=== PATIENT | male | born 1950 | race Caucasian/White ===

== ENCOUNTER → 2017-07-26 | Outpatient (CLI) | payer OTHER ==
[~2017-07-26] MED LIST: ASCO10003 PO; B-CO-25 PO; BUDE1SUS8 INTNAS; BUDESUS; FINACEA GEL TOP; IBUP-1050 PO; KETO0.0216 OP; MISCTAB78 PO; MULT-513 PO; OXYC-292 PO; OXYC7.5T78 PO; POLY99.02 OPB; POLYSOL4 OP; PRLSR20 PO; PSYL48.59 PO; PSYL55.43 PO; RANI150T85 PO; SALI1SPR15 NAE; SENNTAB23 PO; SIMV40TA2 PO; XRL10 PO
[2017-07-26 09:33] LABS: BASO % 0.4 %; BASO ABS # 0.03 K/uL (0-0.2); EOS % 2.2 %; EOS ABS # 0.15 K/uL (0-0.5); HEMATOCRIT 43.2 % (42-52); HEMOGLOBIN 15.1 g/dL (14.0-18.0); IG# 0.02 K/uL (0.00-0.02); LYMPH % 28.3 %; LYMPH ABS # 1.91 K/uL (1.2-3.4); MEAN CELL VOLUME 87.3 fL (80-100); MEAN CORPUSCULAR HEMOGLOBIN 30.5 pg (25-34); MEAN PLATELET VOLUME 11.3 fL (7.4-10.4); MONO % 10.2 %; MONO ABS # 0.69 K/uL (0.11-0.59); NEUT % 58.6 %; NEUT ABS # 3.96 K/uL (1.4-6.5); PLATELET COUNT 167 K/uL (130-400); RED CELL DISTRIBUTION WIDTH CV 13.7 % (11.5-14.5); RED CELL DISTRIBUTION WIDTH SD 43.5 fL (36.4-46.3); WHITE BLOOD COUNT 6.76 K/uL (4.8-10.8)
--- NOTE | 2017-07-26 14:13 | DIAGNOSTIC IMAGING REPORT ---
BONE SCAN 3 PHASE LIMITED HISTORY: 66 years-old Male PAIN,SWELLING,S/P TKA,LT KNEE,R/O LOOSENING,WENT TO LAB 1ST acute pain and swelling of the left knee with history of prior left knee total joint arthroplasty. Concern for possible hardware loosening. Bilateral joint arthroplasties. COMPARISON: Left knee radiographs 07/31/2012 TECHNIQUE: 3 phase bone scan was obtained utilizing 26.9 mCi technetium 99 MDP. Flow images were obtained 3 hours post injection. FINDINGS: There is mildly increased flow about the left knee. Mildly increased tracer uptake is seen on the blood pool images, left greater than right. Moderately increased delayed tracer uptake is seen about the left knee within the region of the distal femur and proximal tibia diffusely surrounding the arthroplasty hardware. Uptake is most pronounced within the region of the medial tibial plateau and within the distal tibial stem. Minimally increased blood pool and delayed delayed uptake is noted about the right knee hardware which is likely within normal limits secondary to remodeling changes. IMPRESSION: 1. Three-phase positive bone scan with uptake seen on all three phases about the left knee arthroplasty. Delayed phase uptake is most pronounced along the medial tibial plateau and within the distal tibial stem. Findings may reflect hardware loosening in the appropriate clinical setting, however aseptic hardware loosening does not typically demonstrate increased blood flow. Septic arthropathy is an additional differential consideration. Correlate with clinical history and left knee radiographs. 2. Minimally increased blood pool and delayed uptake about the right knee hardware is likely physiologic secondary to remodeling changes. The above report was generated using voice recognition software. It may contain grammatical, syntax or spelling errors. Electronically signed by: Derick Armstrong M.D. 07/26/2017 2:12 PM Dictated Date/Time: 07/26/2017 1:56 PM
== END | disposition home or self-care (01) ==
LOC: C.NUCL 08:57
DX: Z47.1 Aftercare following joint replacement surgery (principal)

== ENCOUNTER 2017-08-15 08:42 | Inpatient (IN) | payer OTHER ==
[2017-08-02 09:58] VITALS: Ht 170.2 cm; Wt 107.3 kg
--- NOTE | 2017-08-02 10:38 | PAT Medication Instructions ---
Service Date Aug 02, 2017. Current Home Medication List Ascorbic Acid (Vitamin C), 1,000 MG PO QAM B-Complex W/ Folic Acid (Super B Complex Maxi), 1 TAB PO QAM Budesonide (Nasal) (Rhinocort Allergy), 2 SPRAYS INTNAS PRN Ibuprofen (Advil), 400 MG PO PRN Ketotifen Fumarate (Ophth) (Zaditor 0.025% Oph), 1 DROP OP PRN Misc Natural Products (Osteo Bi-Flex Advanced Do), 1 TAB PO QPM Multivitamins/Minerals (Mvi With Minerals), 1 TAB PO QAM Omeprazole (Prilosec), 20 MG PO QAM Polyethylene Glycol-Propylene (Systane), 1 DROPS OP BID Psyllium (Metamucil), 5 ML PO BID Saline (Saline Nasal [place] Infant), 1 SPRY MINDY QID Sennosides-Docusate Sodium (Stool Softener), 1 TAB PO QPM Simvastatin (Zocor), 40 MG PO QPM Medication Instructions For Your Scheduled Surgery -Contact your surgeon for instructions for: Ibuprofen (Advil), 400 MG PO PRN - Hold the following medications 2 weeks prior to surgery: Misc Natural Products (Osteo Bi-Flex Advanced Do), 1 TAB PO QPM - Hold the following medications the morning of surgery: Ascorbic Acid (Vitamin C), 1,000 MG PO QAM B-Complex W/ Folic Acid (Super B Complex Maxi), 1 TAB PO QAM Multivitamins/Minerals (Mvi With Minerals), 1 TAB PO QAM Psyllium (Metamucil), 5 ML PO BID - Take the following medications the morning of surgery with a sip of water: Budesonide (Nasal) (Rhinocort Allergy), 2 SPRAYS INTNAS PRN Ketotifen Fumarate (Ophth) (Zaditor 0.025% Oph), 1 DROP OP PRN (if needed) Omeprazole (Prilosec), 20 MG PO QAM Polyethylene Glycol-Propylene (Systane), 1 DROPS OP BID Saline (Saline Nasal [place] ), 1 SPRY MINDY QID - Take the following medications as scheduled the night before surgery: Simvastatin (Zocor), 40 MG PO QPM Budesonide (Nasal) (Rhinocort Allergy), 2 SPRAYS INTNAS PRN (if needed) Ketotifen Fumarate (Ophth) (Zaditor 0.025% Oph), 1 DROP OP PRN (if needed) Polyethylene Glycol-Propylene (Systane), 1 DROPS OP BID Sennosides-Docusate Sodium (Stool Softener), 1 TAB PO QPM Psyllium (Metamucil), 5 ML PO BID If you have any questions please call us at [phone] or [phone] or [phone]
[2017-08-02 12:49] LABS: PTT PATIENT 25.8 SECONDS (21.0-31.0)
[2017-08-02 13:13] LABS: HEMOGLOBIN A1C 5.3 % (4.5-5.6)
[2017-08-02 13:18] LABS: CALCIUM 9.5 mg/dl (8.5-10.1); CREATININE 0.98 mg/dl (0.60-1.40); POTASSIUM 3.8 mmol/L (3.5-5.1)
--- NOTE | 2017-08-02 13:29 | DIAGNOSTIC IMAGING REPORT ---
CHEST 2 VIEWS ROUTINE CLINICAL HISTORY: PAT preoperative evaluation COMPARISON STUDY: No previous studies for comparison. FINDINGS: The bones soft tissues and hemidiaphragms are normal. The cardiomediastinal silhouette is normal. The lungs are clear. The pulmonary vasculature is normal. IMPRESSION: Negative chest. The above report was generated using voice recognition software. It may contain grammatical, syntax or spelling errors. Electronically signed by: Cleve Garcia M.D. 08/02/2017 1:27 PM Dictated Date/Time: 08/02/2017 1:27 PM
--- NOTE | 2017-08-14 08:42 | HISTORY & PHYSICAL EXAMINATION ---
DATE OF ADMISSION: 08/15/2017 CHIEF COMPLAINT: Left knee pain status post previous left total knee arthroplasty. HISTORY OF PRESENT ILLNESS: The patient is a 66-year-old male approximately 5 years status post left total knee arthroplasty. More recently he has been having increasing pain and disability with his left knee. Repeat x-rays were concerning for possible prosthetic loosening, particularly around the tibial component. Blood work and a bone scan was ordered. It was negative for septic process, but there was concern for possible aseptic loosening of the left knee arthroplasty. He is now scheduled for an excisional arthroplasty and revision left total knee arthroplasty. PAST MEDICAL HISTORY: Sleep apnea, hypertension, hyperlipidemia, enlarged prostate, acid reflux, hiatal hernia. PAST SURGICAL HISTORY: Left knee replacement as above, right knee replacement, hiatal hernia, right trigger finger, left knee arthroscopy, right shoulder surgery, left thumb surgery, right big toe surgery, left shoulder surgery, prostate surgery. MEDICATIONS: Multivitamin daily, Rhinocort allergy nasal suspension 2 sprays each nostril daily, B complex daily, Colace 100 mg daily as needed, Zyrtec Allergy 10 mg daily, omeprazole 20 mg daily, Osteo Bi-Flex 2 tablets daily, simvastatin 40 mg at bedtime. ALLERGIES: INCLUDE CLINDAMYCIN, NASACORT, LIPITOR, CIPRO, NEXIUM, AZITHROMYCIN. SOCIAL HISTORY AND REVIEW OF SYSTEMS: Noncontributory. PHYSICAL EXAMINATION: GENERAL: Well-nourished, well-developed male who appears stated age. HEENT: Normocephalic, atraumatic, extraocular movements intact, oropharynx pink and moist. NECK: Supple without adenopathy. LUNGS: Clear to auscultation bilaterally. HEART: Regular rate and rhythm. ABDOMEN: Soft, nontender, nondistended. EXTREMITIES: The upper extremities are within normal limits. The left knee is well-aligned. He has a well-healed midline incision from his previous arthroplasty. He has range of motion from 0-120 degrees. X-RAYS: X-rays were reviewed. He has a total knee replaced on the left. It appears well aligned. On the lateral view, there is a definite lucency about the tibial component. There is no obvious lucency on the femoral component. The bone scan was reviewed and is suggestive of probable loosening process, particularly about the tibial component. ASSESSMENT: Aseptic loosening, left total knee arthroplasty. PLAN: Risks versus benefits were discussed, consent was obtained. Will proceed with excisional arthroplasty and revision left total knee as indicated. The patient's primary care physician is Dr. Mancera from [facility].
[2017-08-15] VITALS (8 sets, daily range): BP systolic 128–186; BP diastolic 70–112; PULSE 81–96; TEMP 36.4–36.9; O2SAT 91–94
[~2017-08-15] VITALS: Ht 170.2 cm; Wt 107.3 kg
[2017-08-15] MEDS: TRANEXAMIC ACID INJ 1,000 MG x 2 Bags IV SCH ×4 (06:30→10:55)
[~2017-08-15 08:42] MED LIST changes: +ACETAMINOPHEN 500 MG TAB PO SCH; +ATROPINE SULFATE 0.1 MG/ML 5ML SYR IV PRN; -BUDESUS; +BUPIVACAINE 0.25% 30 ML VIAL ONE; +BUPIVACAINE 0.5 % 5 MG/1 ML PF 10ML VIAL ONE; +CeleBREX 200 MG CAP PO SCH; +DEXAMETHASONE 4 MG TAB PO SCH; +EpHEDrine SULFATE INJ 50 MG/ML AMP IV PRN; +FAMOTIDINE 20 MG TAB PO SCH; -FINACEA GEL TOP; +GABAPENTIN 300 MG CAP PO SCH; +METOCLOPRAMIDE HCL 10 MG TAB PO SCH; +ONDANSETRON INJ 2 MG/ML 2 ML VIAL IV PRN; -OXYC-292 PO; -OXYC7.5T78 PO; -POLY99.02 OPB; -PSYL55.43 PO; -RANI150T85 PO; -XRL10 PO
[2017-08-15] MEDS ORDERED: VANCOMYCIN IV 1,750 MG in SODIUM CHLORIDE 0.9% 500ML 500 ML IV SCH (09:30)
[2017-08-15] MEDS ORDERED: CETI10TA84 PO (09:49)
--- NOTE | 2017-08-15 10:08 | History & Physical Bridge Note ---
H&P Re-Evaluation Bridge Note: I have examined the patient, reviewed the History & Physical and in the interval since the performance of the History & Physical I have noted the following changes of clinical significance: No changes noted
[2017-08-15] MEDS ORDERED: PROPOFOL IV EMULSION 10 MG/ML 20 ML VIAL IV ONE (10:39)
[2017-08-15] MEDS ORDERED: LIDOCAINE HCL 2% 2 ML VIAL (20MG/ML) ONE (10:39)
[2017-08-15] MEDS ORDERED: FENTANYL CITRATE INJ 50 MCG/1 ML 2 ML VIAL ONE (10:40)
[2017-08-15] MEDS ORDERED: MIDAZOLAM HCL 1 MG/ML 2ML VIAL ONE ×2 (10:40→12:33)
[2017-08-15] MEDS ORDERED: BACITRACIN 50000 UNIT VIAL ONE (10:44)
[2017-08-15] MEDS ORDERED: POVIDONE-IODINE OP SOLN 30 ML BTL ONE (10:44)
[2017-08-15] MEDS ORDERED: ROPIVACAINE 5MG/ML 30 ML 150 MG, BUPIVACAINE 0.5% MPF INJ 30 ML, EpINEphrine HCL INJ 0.... INFIL SCH ×8 (11:00)
[2017-08-15] MEDS ORDERED: KETAMINE HCL INJ 50 MG/ML 10 ML VIAL ONE (11:42)
--- NOTE | 2017-08-15 13:43 | [facility] Post Operative Brief Note ---
Immediate Operative Summary Operative Date Aug 15, 2017. Pre-Operative Diagnosis Aseptic Loosening, Left Total Knee Arthroplasty Post-Operative Diagnosis Same as preop Procedure(s) Performed Left Total Knee Revision Surgeon Dr. Moon Vp Ancillary Surgeon(s) Sean Gamboa PA-C Estimated Blood Loss 150 ml Findings Consistent with Post-Op Diagnosis Specimens Microbiology 1. Left Knee Joint Fluid-gram stain, culture and sensitivity, aerobic and anerobic left room at 1200 Permanent A. Explanted Hardware Frozen 1. Bone Prosthetic Interface Left Femur-WBC's per [employer] left room at 1217 Anesthesia Type MAC Spinal Regional Complication(s) none Disposition Accompanied Pt To Recover: no Disposition: Recovery Room / PACU
[2017-08-15] MEDS ORDERED: HYDROmorphone INJ 0.5 MG/0.5 ML SYR IV PRN (14:30)
[2017-08-15] MEDS ORDERED: MAGNESIUM HYDROXIDE SUSP 30 ML UDC PO PRN (14:30)
[2017-08-15] MEDS ORDERED: ONDANSETRON INJ 2 MG/ML 2 ML VIAL IV PRN (14:30)
[2017-08-15] MEDS ORDERED: ALUMINUM/MAGNESIUM/SIMETH (MAALOX MAX) 30 ML UDC PO PRN (14:30)
[2017-08-15] MEDS ORDERED: BISACODYL 10 MG SUPP PR PRN (14:30)
[2017-08-15] MEDS ORDERED: TRAMADOL HCL 50 MG TAB PO PRN (14:30)
[2017-08-15] MEDS ORDERED: VANCOMYCIN CONSULT ACTIVE PRN (14:30)
--- NOTE | 2017-08-15 15:10 | DIAGNOSTIC IMAGING REPORT ---
L KNEE 1 OR 2 VIEWS ROUTINE CLINICAL HISTORY: Postop knee arthroplasty revision COMPARISON: 07/31/2012 DISCUSSION: There are postsurgical changes of a long stem total knee arthroplasty and patellar resurfacing. The femoral and tibial components appear well seated. There are overlying surgical drains. Air within the soft tissues is felt to be postsurgical IMPRESSION: Postsurgical changes of a total left knee arthroplasty revision Electronically signed by: Ke Patterson M.D. 08/15/2017 3:09 PM Dictated Date/Time: 08/15/2017 3:08 PM
--- NOTE | 2017-08-15 15:20 | Anesthesiology Progress Note ---
Anesthesia Post Op Note Date & Time Aug 15, 2017 at 15:20 Vital Signs Pain Intensity: 0 Vital Signs Past 12 Hours Date Time Temp Pulse Resp B/P (MAP) Pulse Ox O2 Delivery O2 Flow Rate FiO2 08/15/17 15:10 80 16 152/83 96 Nasal Cannula 3 08/15/17 15:00 88 16 169/82 96 Nasal Cannula 3 08/15/17 14:50 84 16 146/87 95 Nasal Cannula 3 08/15/17 14:40 86 16 141/75 96 Nasal Cannula 3 08/15/17 14:30 85 16 141/85 96 Nasal Cannula 3 08/15/17 14:20 90 16 150/84 96 Nasal Cannula 3 08/15/17 14:14 36.1 90 16 155/87 94 Nasal Cannula 3 08/15/17 10:01 36.4 81 20 148/99 94 Room Air 186/112 Notes Mental Status: alert / awake / arousable, participated in evaluation Pt Amnestic to Procedure: Yes Nausea / Vomiting: adequately controlled Pain: adequately controlled Airway Patency, RR, SpO2: stable & adequate BP & HR: stable & adequate Hydration State: stable & adequate Neuraxial Anesthesia: was administered, sensory block is resolving Anesthetic Complications: no major complications apparent
[2017-08-15] MEDS ORDERED: NURSING VERBAL MED ORDER ONE (16:45)
[2017-08-15] MEDS: D5W AND 1/2NSS + 20MEQ KCL 1,000 ML IV SCH (16:50)
[2017-08-15] MEDS: FERROUS GLUCONATE 324 MG TAB PO SCH (17:48)
--- NOTE | 2017-08-15 18:15 | OPERATIVE REPORT ---
DATE OF OPERATION: 08/15/2017 POSTOPERATIVE DIAGNOSIS: Aseptic loosening, left total knee. PROCEDURE: Revision left total knee. SURGEON: Gaurang Moon MD. BASEBALL SCOUT: AGAPITO Landa. Mr. Gamboa was essential through all portions of the case including positioning, prepping, draping, surgical lead, wound closure and dressing application. ANESTHESIA: Spinal. COMPLICATIONS: None. DESCRIPTION OF PROCEDURE: Following the induction of adequate general anesthesia, the patient's left leg was prepped and draped in usual sterile manner. The limb was exsanguinated with an Esmarch bandage and tourniquet inflated to 350 mmHg. Previously made incision was reopened. Subcutaneous tissue was sharply dissected. Electrocautery was used for hemostasis. Median parapatellar incision was made and a fluid sample was sent for culture and sensitivity and Gram stain. The knee was found to be severely involved with a hypertrophic synovitis. This grayish tissue was removed from normal tissue using sharp dissection. Care was taken to remove all of this tissue. Attention was turned first to the tibial component where the tibial polyethylene was disimpacted. That was found to be undamaged. Next, the patella was inspected and was not felt to be loose or worn. The femur was undermined using a thin flexible osteotome and was easily disimpacted with no loss of bone. Tissue samples sent to the lab to look for inflammatory cells. This sample, one of this being fibrinous debris. Next, attention was turned to the tibia which was found to be grossly loose. Using the Franki extractor, the tibial component was removed. A drill was used to penetrate the cement plug and sequential reamings were carried up to a size 13 stem tibia. This was an offset 4 mm and a straight posterior offset was chosen. Next, the clean-up cut was made using the oscillating saw and all bony debris as well as posterior capsular scar tissue was removed. The tibia was further prepared using the drill, bone tamp and mallet and the tibial trial was assembled and impacted into position and fit very nicely. Next, attention was turned to the femur where a size 4 femoral component was chosen as the size to be used. A 10 mm chamfer cuts were required posteriorly and reamings taken up to a size 17 without an offset was chosen in for the femur. The trial femur was placed and a trial reduction was carried out with multiple poly inserts. The size 19 posterior stabilized poly was chosen the size to be used. The patella tracked nicely. There was good balance in flexion and extension and the trials were removed. The final components were obtained and assembled. The joint mix was injected throughout the knee. Knee was thoroughly irrigated with pulsatile irrigation while cement was mixed. The bone ends were all dried and first the tibial component was cemented into position without the polyethylene in place. Following this, the stemmed femoral component was cemented into place and all excess cement was removed. The knee was held in extension with the trial in position until cement hardened. Once the cement hardened, additional irrigation with pulsatile irrigant was carried out and the final poly was positioned and impacted into position. Once again, the patella tracked nicely. Wound was irrigated. Betadine soak was utilized. Hemovac drain was placed and the extensor mechanism was closed using #1 FiberWire, subcutaneous tissue was closed using 0 Dexon, and skin was closed with ZipLine. Sterile dressing of Silverlon, sterile Webril and a double length Josh was applied. The patient tolerated the procedure well. I attest to the content of the Intraoperative Record and any orders documented therein. Any exception s are noted below.
[2017-08-15] MEDS: OXYCODONE HCL IR 5 MG TAB (IMMEDIATE RELEASE) PO PRN (19:05)
[2017-08-15] MEDS ORDERED: ASPIRIN 81 MG ECTAB PO SCH (21:00)
[2017-08-15] MEDS: SENNA 8.6 MG TAB PO SCH (21:01)
[2017-08-15] MEDS: DOCUSATE SODIUM 100 MG CAP PO SCH (21:01)
[2017-08-15] MEDS: CeleBREX 200 MG CAP PO SCH (21:01)
[2017-08-15] MEDS: SIMVASTATIN 40 MG TAB PO SCH (21:01)
[2017-08-15] MEDS: ACETAMINOPHEN 500 MG TAB PO SCH (21:01)
[2017-08-15] MEDS ORDERED: VANCOMYCIN IV 1,500 MG in SODIUM CHLORIDE 0.9% 500ML 500 ML IV SCH (22:00)
[2017-08-16] MEDS: OXYCODONE HCL IR 5 MG TAB (IMMEDIATE RELEASE) PO PRN ×4 (02:58→21:34)
[2017-08-16 03:11] VITALS: BP 138/78; PULSE 88; TEMP 36.8; O2SAT 95
[2017-08-16] MEDS: D5W AND 1/2NSS + 20MEQ KCL 1,000 ML IV SCH (04:56)
[2017-08-16] MEDS: ACETAMINOPHEN 500 MG TAB PO SCH ×3 (05:22→21:29)
[2017-08-16 06:47] LABS: HEMATOCRIT 38.6 % (42-52); HEMOGLOBIN 13.3 g/dL (14.0-18.0); MEAN CELL VOLUME 87.3 fL (80-100); MEAN CORPUSCULAR HEMOGLOBIN 30.1 pg (25-34); MEAN CORPUSCULAR HGB CONC 34.5 g/dl (32-36); MEAN PLATELET VOLUME 11.7 fL (7.4-10.4); PLATELET COUNT 169 K/uL (130-400); RED CELL DISTRIBUTION WIDTH CV 13.6 % (11.5-14.5); RED CELL DISTRIBUTION WIDTH SD 43.1 fL (36.4-46.3); WHITE BLOOD COUNT 14.39 K/uL (4.8-10.8)
[2017-08-16 07:17] LABS: CREATININE 1.16 mg/dl (0.60-1.40); POTASSIUM 4.1 mmol/L (3.5-5.1)
[2017-08-16 08:12] VITALS: BP 138/82; PULSE 84; TEMP 36.5; O2SAT 92
--- NOTE | 2017-08-16 08:53 | Orthopedic Progress Note ---
Orthopedic Progress Note Date of Service Aug 16, 2017. Subjective Post OP Day: 1 Reports: feeling well Objective N/V intact, dressing C/D/I (Hemovac in place), toes mobile Date Time Temp Pulse Resp B/P (MAP) Pulse Ox O2 Delivery O2 Flow Rate FiO2 08/16/17 08:12 36.5 84 22 138/82 (100) 92 Room Air 08/16/17 03:11 36.8 88 20 138/78 (98) 95 Room Air 08/15/17 22:52 36.7 85 16 128/70 (89) 93 Room Air 08/15/17 19:15 Room Air 08/15/17 18:44 36.5 93 18 165/81 (109) 94 Room Air 08/15/17 17:55 36.9 96 20 138/80 (99) 94 Nasal Cannula 2.0 08/15/17 17:46 92 16 139/78 (98) 94 Nasal Cannula 2.0 08/15/17 16:41 36.6 90 18 150/81 (104) 93 Nasal Cannula 2.0 08/15/17 16:12 36.4 86 20 154/80 (104) 92 Nasal Cannula 2.0 08/15/17 16:00 91 Nasal Cannula 2.0 08/15/17 15:40 91 Nasal Cannula 2.0 08/15/17 15:40 36.5 86 18 160/82 (108) 91 Nasal Cannula 2.0 08/15/17 15:25 36.7 82 16 138/81 96 Nasal Cannula 3 08/15/17 15:10 80 16 152/83 96 Nasal Cannula 3 08/15/17 15:00 88 16 169/82 96 Nasal Cannula 3 08/15/17 14:50 84 16 146/87 95 Nasal Cannula 3 08/15/17 14:40 86 16 141/75 96 Nasal Cannula 3 08/15/17 14:30 85 16 141/85 96 Nasal Cannula 3 08/15/17 14:20 90 16 150/84 96 Nasal Cannula 3 08/15/17 14:14 36.1 90 16 155/87 94 Nasal Cannula 3 08/15/17 10:01 36.4 81 20 148/99 94 Room Air 186/112 Laboratory Results 24 Hours: Test 08/16/17 05:38 Hematocrit 38.6 % Hemoglobin 13.3 g/dL Assessment & Plan Assessment: 66 yo male stable POD #1 s/p left TKA revision Plan: 1. Med management 2. DVT prophylaxis- Xarelnimesh, SCDs 3. PT/OT 4. D/C planning- home w/ OPPT
--- NOTE | 2017-08-16 08:57 | Discharge Instructions ---
Discharge Instructions Date of Service Aug 16, 2017. Admission Reason for Admission: Left Knee Pain Due To Internal Orthopedic Prosthe Discharge Discharge Diagnosis / Problem: Loosening left total knee arthroplasty Discharge Goals Goal(s): Decrease discomfort, Improve function Activity Recommendations Activity Limitations: as noted below Weightbearing Status: Left weightbearing (as tolerated) . Instructions / Follow-Up Instructions / Follow-Up ACTIVITY RECOMMENDATIONS: SELF CARE INSTRUCTIONS AFTER TOTAL KNEE REPLACEMENT A. You may need to continue a physical therapy program after discharge from the hospital. There are several options available to you. Your doctor will assist you in selecting the best one for you. 1. An out-patient facility 2 to 3 times a week for therapy or home therapy. 2. Continue working on all exercises taught to you in the hospital. Your goals should be to increase bending of your knee to 90 degrees and beyond and to fully straighten your knee. B. You may progress at your own pace from walking with a walker or crutches to a cane; then to no assistive devices. C. Make walking a part of your daily routine. Be up as much as comfortable with rest periods throughout the day. Rest with leg elevation is very important. Use the ice wrap frequently for the first 3-4 weeks. D. There are no restrictions on activities. You may ride in a car, shop, participate in fire watchman and all social activities. E. Wear the long elastic stockings (BELA hose) 20 hours a day for 2 weeks after surgery. They can be removed several times a day for laundering and for a bath. F. You may shower, no tub baths until cleared by your doctor. SPECIAL CARE INSTRUCTIONS: VERY IMPORTANT TO READ AND REVIEW A. There are a few signs you need to watch for after you are home. Call [facility] if you notice any of the followin. Increased severe knee pain. Some pain is expected especially when you exercise. 2. Increased swelling in your leg or knee; pain or swelling of the calf muscle in either lower leg. 3. Any fluid drainage from the incision. 4. Shortness of breath or chest pain. B. Please call [facility] at if you have any concerns or questions about your operation or recovery. The doctor or his nurse will return your call promptly. C. You must take antibiotics before dental work, bladder, bowel or other surgery. Your doctor will provide you with a permanent care to carry describing this precaution. IMPORTANT: * REMEMBER TO TAKE Xarelto UNLESS OTHERWISE DIRECTED. THIS IS YOUR BLOOD THINNER. * HIGH RISK PATIENTS MAY BE PRESCRIBED A STRONGER BLOOD THINNER. THIS WILL BE PROVIDED AT DISCHARGE. * CALL IF INCREASED PAIN, REDNESS, DRAINAGE OR FEVER GREATER THAT 101. * WEAR BELA HOSE 20 HOURS PER DAY FOR 2 WEEKS. Maintain Zipline closure FOLLOW UP VISIT: If appointment is not already scheduled: Please call [facility] to make a follow-up appointment for 2 weeks after your surgery at . Current Hospital Diet Patient's current hospital diet: Regular Diet Discharge Diet Recommended Diet: Regular Diet Procedures Procedures Performed: Left Total Knee Revision Pending Studies Studies pending at discharge: no Laboratory Results Hemoglobin A1c Test 08/02/17 10:50 Range/Units Estimated Average Glucose 105 mg/dl Hemoglobin A1c 5.3 4.5-5.6 % Medical Emergencies . Who to Call and When: Medical Emergencies: If at any time you feel your situation is an emergency, please call 911 immediately. . Non-Emergent Contact Non-Emergency issues call your: Surgeon Call Non-Emergent contact if: temperature is above 101.5, your pain is not controlled, wound has increased drainage, wound has increased redness . "Provider Documentation" section prepared by Conner Yusuf PA-C. . [place] Drug Monitoring Program Search Results: patient reviewed within database, no issues identified
--- NOTE | 2017-08-16 10:02 | Anesthesiology Progress Note ---
Anesthesia Post Op Note Date & Time Aug 16, 2017 at 10:01 Vital Signs Pain Intensity: 6.0 Vital Signs Past 12 Hours Date Time Temp Pulse Resp B/P (MAP) Pulse Ox O2 Delivery O2 Flow Rate FiO2 08/16/17 08:12 36.5 84 22 138/82 (100) 92 Room Air 08/16/17 03:11 36.8 88 20 138/78 (98) 95 Room Air 08/15/17 22:52 36.7 85 16 128/70 (89) 93 Room Air Notes Mental Status: alert / awake / arousable, participated in evaluation Pt Amnestic to Procedure: Yes Nausea / Vomiting: adequately controlled Pain: adequately controlled Airway Patency, RR, SpO2: stable & adequate BP & HR: stable & adequate Hydration State: stable & adequate Neuraxial Anesthesia: was administered, sensory block resolved Anesthetic Complications: no major complications apparent
[2017-08-16 10:11] VITALS: O2SAT 92
[2017-08-16] MEDS: PANTOprazole SOD 40 MG TAB PO SCH (10:17)
[2017-08-16] MEDS: CeleBREX 200 MG CAP PO SCH ×2 (10:18→21:29)
[2017-08-16] MEDS: MULTIVITAMIN TAB PO SCH (10:19)
[2017-08-16] MEDS: DOCUSATE SODIUM 100 MG CAP PO SCH ×2 (10:19→21:29)
[2017-08-16] MEDS: FERROUS GLUCONATE 324 MG TAB PO SCH ×3 (10:19→18:02)
[2017-08-16] MEDS: RIVAROXABAN 10 MG TAB PO SCH (10:20)
[2017-08-16] MEDS: CETIRIZINE HCL 10 MG TAB PO SCH (10:21)
[2017-08-16 11:47] VITALS: BP 164/80; PULSE 90; TEMP 36.6; O2SAT 93
[2017-08-16 15:01] VITALS: BP 157/89; PULSE 82; TEMP 36.6; O2SAT 95
[2017-08-16] MEDS: SIMVASTATIN 40 MG TAB PO SCH (21:28)
[2017-08-16] MEDS: SENNA 8.6 MG TAB PO SCH (21:29)
[2017-08-16] MEDS ORDERED: COUGH DROP (SUGAR FREE) LOZ 24 LOZ/1 BOX LOZ ONE (21:34)
[2017-08-16 23:01] VITALS: BP 156/84; PULSE 84; TEMP 36.8; O2SAT 93
[2017-08-17] MEDS: OXYCODONE HCL IR 5 MG TAB (IMMEDIATE RELEASE) PO PRN ×2 (03:53→08:39)
[2017-08-17] MEDS: ACETAMINOPHEN 500 MG TAB PO SCH (05:34)
[2017-08-17] MEDS: PANTOprazole SOD 40 MG TAB PO SCH (05:35)
[2017-08-17 06:54] VITALS: BP 146/91; PULSE 71; TEMP 36.4; O2SAT 92
[2017-08-17] MEDS: RIVAROXABAN 10 MG TAB PO SCH (08:39)
[2017-08-17] MEDS: FERROUS GLUCONATE 324 MG TAB PO SCH (08:39)
[2017-08-17] MEDS: MULTIVITAMIN TAB PO SCH (08:39)
[2017-08-17] MEDS: CETIRIZINE HCL 10 MG TAB PO SCH (08:40)
--- NOTE | 2017-08-17 09:22 | Orthopedic Progress Note ---
Orthopedic Progress Note Date of Service Aug 17, 2017. Subjective Post OP Day: 2 Reports: feeling well, pain controlled w PO medications, Denies: chest pain, SOB , nausea / vomiting, light headedness, calf pain Objective calves soft nontender, N/V intact, capillary refill less than 2 sec., dressing C /D/I (zipline), A&O x3, toes mobile Date Time Temp Pulse Resp B/P (MAP) Pulse Ox O2 Delivery O2 Flow Rate FiO2 08/17/17 08:52 Room Air 08/17/17 06:54 36.4 71 19 146/91 (109) 92 Room Air 08/16/17 23:01 36.8 84 18 156/84 (108) 93 Room Air 08/16/17 19:30 Room Air 08/16/17 15:01 36.6 82 18 157/89 (111) 95 Room Air 08/16/17 11:47 36.6 90 20 164/80 (108) 93 Room Air 08/16/17 10:11 92 Room Air 08/16/17 09:45 Room Air Assessment & Plan Assessment: 66 yo male stable POD #2 s/p left TKA revision Plan: 1. Med management 2. DVT prophylaxis- Xarelnimesh, SCDs 3. PT/OT 4. D/C planning- home w/ OPPT Inhouse Planning Pain Management: Celebrex, PO Tylenol, Oxy IR DVT Prophylaxis: TEDs, SCDs, Xarelto Discharge Planning Discharge Planning: home with oppt Pain Management: Percocet DVT Prophylaxis: Xarelto Therapy: Physical Therapy
[2017-08-17] MEDS ORDERED: FRRG PO (09:27)
[2017-08-17] MEDS ORDERED: XRL10 PO (09:27)
[2017-08-17] MEDS ORDERED: OXYC-57 PO (09:27)
[2017-08-17] MEDS ORDERED: CLB200 PO (09:27)
[2017-08-17 09:55] VITALS: BP 146/91; PULSE 71; TEMP 36.4; O2SAT 92
[2017-08-17] MEDS: DOCUSATE SODIUM 100 MG CAP PO SCH (10:17)
[2017-08-17] MEDS: CeleBREX 200 MG CAP PO SCH (10:17)
--- NOTE | 2017-08-19 13:51 | DISCHARGE SUMMARY ---
DISCHARGE DIAGNOSIS: Aseptic loosening, left total knee arthroplasty. SECONDARY DIAGNOSES: Sleep apnea, hypertension, hyperlipidemia, benign prostatic hypertrophy, gastroesophageal reflux disease, and hiatal hernia. CONSULTS: None. COMPLICATIONS: None. PROCEDURES: Left revision TKA by Dr. Moon on 08/15/2017. BRIEF HISTORY: As dictated in the history and physical. HOSPITAL SUMMARY: The patient was admitted on the above noted date and had the above noted surgery performed, which he started well. On the first postoperative day, the patient was feeling well. Neurovascularly was intact. Dressings were clean, dry and intact. Toes are mobile. Vital signs were stable. He was afebrile and hemoglobin was 13.3. The patient was started on physical therapy protocol and continued on DVT prophylaxis and pain management. By his second postoperative day, he was feeling well and pain was controlled. Calves were nontender. Neurovascularly intact. The ZipLine closure was intact. Toes were mobile and vital signs were stable. He was progressing with his physical therapy and remaining stable and it was felt he could be discharged to home. For further review, please see chart. LAB AND X-RAY DATA: As per chart. DISCHARGE INSTRUCTIONS: The patient was discharged home in satisfactory condition on 08/17/2017. DIET: Regular. ACTIVITY: Weightbearing as tolerated in the left lower extremity. Follow TKA instruction sheets and special care instructions as noted. Follow up Dr. Moon in 2 weeks. The patient is to call for an appointment if one has not been made for you. DISCHARGE MEDICATIONS: Celebrex 200 mg p.o. b.i.d. for 30 days, ferrous gluconate 324 mg p.o. t.i.d. for 30 days, Percocet 5/325 one to two tablets p.o. q. 4 hours p.r.n., and rivaroxaban 10 mg p.o. daily for 12 days. Resume home meds as listed and stop taking ibuprofen.
== END 2017-08-17 10:49 | disposition home or self-care (01) | DRG 468 ==
LOC: C.ACU 08:42 → C.3E 10:49 → ENRESERV 14:49
PROC: 0SRW0J9 Replacement of Left Knee Joint, Tibial Surface with Synthetic Substitute, Cemented, Open Approach (ICD-10-PCS; principal; 2017-08-15 12:00)
PROC: 0SRU0J9 Replacement of Left Knee Joint, Femoral Surface with Synthetic Substitute, Cemented, Open Approach (ICD-10-PCS; principal; 2017-08-15 12:00)
PROC: 0SPD0JZ Removal of Synthetic Substitute from Left Knee Joint, Open Approach (ICD-10-PCS; principal; 2017-08-15 12:00)
DX: T84.033A Mechanical loosening of internal left knee prosthetic joint, initial encounter (principal); G47.30 Sleep apnea, unspecified; M65.862 Other synovitis and tenosynovitis, left lower leg; I10 Essential (primary) hypertension; E78.5 Hyperlipidemia, unspecified; N40.0 Benign prostatic hyperplasia without lower urinary tract symptoms; K21.9 Gastro-esophageal reflux disease without esophagitis; Z96.653 Presence of artificial knee joint, bilateral; Z88.1 Allergy status to other antibiotic agents; Z88.8 Allergy status to other drugs, medicaments and biological substances; Y79.2 Prosthetic and other implants, materials and accessory orthopedic devices associated with adverse incidents; Y92.019 Unspecified place in single-family (private) house as the place of occurrence of the external cause

== ENCOUNTER 2019-03-31 08:44 | Inpatient (IN) ==
--- NOTE | 2019-03-03 21:09 | PAT Medication Instructions ---
Medication Instructions Date of Service March 03, 2019 Home Medications B-complex with vitamin C [Super B Complex-Vitamin C] 1 tab PO QAM ascorbic acid (vitamin C) [Vitamin C] 500 mg PO DAILY budesonide [Rhinocort Allergy] 2 spray INTRANASAL UD PRN docusate sodium [Colace] 100 mg PO BID gemfibrozil 600 mg PO DAILY glucosamine-chondroitin [Osteo Bi-Flex] 2 tab PO QDD losartan 50 mg PO QAM multivitamin 1 cap PO DAILY omeprazole 20 mg PO QAM psyllium husk [Metamucil] 1 tsp PO BID STOP taking 2 weeks before surgery (or as soon as possible if surgery is within 2 weeks) glucosamine-chondroitin [Osteo Bi-Flex] 2 tab PO QDD STOP taking 48 hours before surgery gemfibrozil 600 mg PO DAILY DO NOT take the morning of surgery B-complex with vitamin C [Super B Complex-Vitamin C] 1 tab PO QAM ascorbic acid (vitamin C) [Vitamin C] 500 mg PO DAILY docusate sodium [Colace] 100 mg PO BID losartan 50 mg PO QAM multivitamin 1 cap PO DAILY psyllium husk [Metamucil] 1 tsp PO BID Take morning of surgery With a small sip of water, OTHERWISE NOTHING TO EAT OR DRINK AFTER MIDNIGHT: budesonide [Rhinocort Allergy] 2 spray INTRANASAL UD PRN (if needed) omeprazole 20 mg PO QAM Take evening before surgery budesonide [Rhinocort Allergy] 2 spray INTRANASAL UD PRN (if needed) docusate sodium [Colace] 100 mg PO BID psyllium husk [Metamucil] 1 tsp PO BID Other Notes If you have any questions please call us at [phone] or [phone] or [phone] or [phone]
--- NOTE | 2019-03-04 13:56 | Anesthesiology Consultation ---
Date of Service March 04, 2019 Assessment & Plan (1) Encounter for pre-operative examination: Chart Review Chart Review: Pending: Refer to Additional Notes / Consult section (pending preop testing (labs, EKG, CXR)) and Patient seen in Pre Admission Testing Teaching & Discussion Pre-Anesthesia Teaching/Discussion Notes: Instructed NPO after midnight before surgery,except medications with 15 cc of water. Medication instructions prov ided according to the PAT guidelines. History Surgery Operation Date: 03/31/19 07:15 Proposed Procedures p Right Total Hip Arthroplasty Posterior - Chidi Foy DO Height/Weight Height: 5 ft 7 in Weight: 106.5 kg Allergies Allergy/AdvReac Type Severity Reaction Status Date / Time atorvastatin Allergy Unknown SOB, chest Verified 03/04/19 15:35 pain azithromycin Allergy Unknown Unknown Verified 03/04/19 15:35 reaction Cipro Allergy Unknown TENDONS Verified 08/15/17 09:43 HURT clindamycin Allergy Unknown Throat Verified 03/04/19 15:35 swelling, SOB lisinopril Allergy Unknown Facial Verified 03/04/19 15:35 swelling ciprofloxacin AdvReac Unknown Tendon Verified 03/04/19 15:35 weakness simvastatin AdvReac Unknown Myalgias Verified 03/04/19 15:35 Medications Home Medications Medication Instructions Recorded Confirmed Last Taken B-complex with vitamin C [Super B 1 tab PO QAM 02/25/19 02/25/19 Unknown Complex-Vitamin C] ascorbic acid (vitamin C) [Vitamin 500 mg PO DAILY 02/25/19 02/25/19 Unknown C] budesonide [Rhinocort Allergy] 2 spray INTRANASAL UD PRN 02/25/19 02/25/19 Unknown docusate sodium [Colace] 100 mg PO BID 02/25/19 02/25/19 Unknown gemfibrozil 600 mg PO DAILY 02/25/19 02/25/19 Unknown losartan 50 mg PO QAM 02/25/19 02/25/19 02/25/19 multivitamin 1 cap PO DAILY 02/25/19 02/25/19 Unknown omeprazole 20 mg PO QAM 02/25/19 02/25/19 02/25/19 psyllium husk [Metamucil] 1 tsp PO BID 02/25/19 02/25/19 Unknown Past Medical History Medical History Acid reflux controlled Fatty liver Hiatal hernia Hip problem s/p cortisone injection (10/2018) Hyperlipidemia Hypertension Snores Exercise / Class Metabolic Activity II 4-5 Yardwork/Stairs/Walk up hill Past Family History Family History Grandmother Family history of diabetes mellitus (DM) Uncle Family history of diabetes mellitus (DM) Grandfather Family history of diabetes mellitus (DM) Other Family history of breast cancer in mother Patient's mother is Past Surgical History Surgical History History of arthroscopy of left knee History of arthroscopy of right knee History of cardiac cath SEVERAL YEARS AGO= NO STENTS History of colonoscopy 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 History of hemorrhoidectomy History of prostate surgery LASER History of repair of left rotator cuff History of repair of right rotator cuff History of revision of total replacement of left knee joint History of thumb surgery LEFT History of toe surgery R History of total left knee replacement History of total right knee replacement Past Anesthesia History No Hx of Anesthesia Complications and No Family Hx of Anesthesia Complications History of PONV No Hx of PONV and No Hx of Motion Sickness Social History Smoking Status: Never smoker Do You Dip or Chew Tobacco: No (HX OF - QUIT 1984) Hx Alcohol Use: Yes Alcohol type: beer alcohol intake frequency: holidays/special occasions only Hx Substance Use: No substance use type: does not use Review of Systems Reflux controlled. Patient denies chest pain, shortness of breath, dyspnea on exertion, joint pain, reflux, cough, wheezing, palpitations. Physical Exam Vital Signs VITALS BP 143/86 P 68 TEMP 97.5 SP02 95%RA RESP 18 PHYSICAL Full neck and c-spine range of motion. Full TMJ range of motion. TMD 4 finger breaths Mallampati Score 2 Dentition: lower front "glued in" teeth; and caps on sides Lungs: clear throughout to auscultation Cardiac: regular rate and rhythm, no murmurs noted Spine: normal Carotid arteries: negative bruit Extremities: no edema Trimmed kay Testing Laboratory Results 03/04/19 14:08 03/04/19 14:08 Urine Color Dark Yellow 03/04/19 Unknown Urine Appearance Clear (Clear) 03/04/19 Unknown Urine pH 5.0 (4.5-7.5) 03/04/19 Unknown Ur Specific [place] 1.027 (1.000-1.030) 03/04/19 Unknown Urine Protein Negative (Negative) 03/04/19 Unknown Urine Glucose (UA) Negative (Negative) 03/04/19 Unknown Urine Ketones 2+ (Negative) H 03/04/19 Unknown Urine Nitrite Negative (Negative) 03/04/19 Unknown Ur Leukocyte Esterase Negative (Negative) 03/04/19 Unknown Echocardiogram Date: 10/24/15 EF 60%. No RWMA. No significant valvular disease. Stress Test Date: 01/01/17 Type: exercise 7 METS. "Normal" stress ECHO with "normal wall motion." No ischemic ST/TWA. No c hest pain.
--- NOTE | 2019-03-04 14:55 | XRay Report ---
XR chest Pre-admission PA/Lat CLINICAL HISTORY: Preoperative evaluation. COMPARISON STUDY: Chest radiograph August 02, 2017. FINDINGS: Lung volumes are normal. Lungs are clear. There is no pneumothorax or pleural effusion. Car diac size is normal. Mediastinal contours are normal. There is no evidence for pulmonary edema. IMPRESSION: No acute cardiopulmonary findings. Electronically signed by: Jeffrey Mcnulty M.D. 03/04/2019 2:54 PM
[2019-03-04 15:23] LABS: Basophils # (auto) 0.03 K/uL (0-0.2); Basophils % (auto) 0.5 %; Eosinophils # (auto) 0.18 K/uL (0-0.5); Eosinophils % (auto) 2.9 %; Hemoglobin 15.1 g/dL (14.0-18.0); Immature Granulocytes # (auto) 0.01 K/uL (0.00-0.02); Immature Granulocytes % (auto) 0.2 %; Lymphocytes # (auto) 1.34 K/uL (1.2-3.4); Lymphocytes % (auto) 21.5 %; Mean Corpuscular Hemoglobin 30.3 pg (25-34); Mean Corpuscular Hgb Conc 34.3 g/dL (32-36); Mean Corpuscular Volume 88.2 fL (80-100); Mean Platelet Volume 11.6 fL (7.4-10.4); Monocytes % (auto) 11.3 %; Neutrophils # (auto) 3.96 K/uL (1.4-6.5); Neutrophils % (auto) 63.6 %; Platelet Count 170 K/uL (130-400); RDW Coefficient of Variation 13.3 % (11.5-14.5); RDW Standard Deviation 42.5 fL (36.4-46.3); Red Blood Count 4.99 M/uL (4.7-6.1); White Blood Count 6.22 K/uL (4.8-10.8)
[2019-03-04 15:24] LABS: Appearance Urine Clear (Clear); Bilirubin Urine Negative (Negative); Blood Urine Negative (Negative); Color Urine Dark Yellow; Glucose Urine UA Negative (Negative); Ketones Urine 2+ (Negative); Leukocyte Esterase Urine Negative (Negative); Nitrite Urine Negative (Negative); Protein Urine Negative (Negative); Specific Gravity Urine 1.027 (1.000-1.030); Urobilinogen Urine Negative (Negative)
[2019-03-04 15:31] LABS: Albumin Level 3.8 gm/dl (3.4-5.0); Calcium 8.9 mg/dl (8.5-10.1); Creatinine Clr Calc Pharmacy 82.4 ml/min; Est GFR (African American) 91.3; Est GFR (Non-African American) 78.8; Potassium 3.4 mmol/L (3.5-5.1)
[2019-03-04 15:35] LABS: INR 1.1 (0.9-1.1); Partial Thromboplastin Time 27.2 Seconds (21.0-31.0); Prothrombin Time 10.8 Seconds (9.0-12.0)
[2019-03-05 05:53] LABS: Estimated Average Glucose 108 mg/dl; Hemoglobin A1C 5.4 % (4.5-5.6)
--- NOTE | 2019-03-30 11:09 | History & Physical Report ---
Date of Service March 30, 2019 Assessment & Plan (1) Degenerative joint disease of right hip: I have indicated the patient for right total hip replacement. The risks, benefits and complications of surgery were explained to the patient which include but not limited to infection, acute blood loss, DVT/PE, injury to nerves, vessels, bone, soft tissue, arthrofibrosis, chronic pain, failure of the prosthesis, hip dislocation, leg length discrepancy, need for additional surgery, cardiac and pulmonary events and . The patient wished to proceed with surgery and informed consent was obtained at this time. We will plan for ASA BID post-operatively for DVT prophylaxis. Upon discharge the patient will be discharged home with home health services. Appropriate clearances by PCP were obtained. History of Present Illness Chief Complaint: Right hip pain/djd Primary Care Provider: Jatin Mancera MD The patient is a 68 year old male who presents with complaints of severe right hip pain and DJD. The patient has failed outpatient conservative treatments to this point which included NSAIDs, IA corticosteroid injection, home ex ercise/walking program. The patient's pain and limited function have progressed to the point where they severely hinder their activities of daily living and they no longer tolerate exercise programs. They are requesting to proceed with total hip replacement surgery. Allergies Allergy/AdvReac Type Severity Reaction Status Date / Time atorvastatin Allergy Unknown SOB, chest Verified 03/04/19 15:35 pain azithromycin Allergy Unknown Unknown Verified 03/04/19 15:35 reaction Cipro Allergy Unknown TENDONS Verified 08/15/17 09:43 HURT clindamycin Allergy Unknown Throat Verified 03/04/19 15:35 swelling, SOB lisinopril Allergy Unknown Facial Verified 03/04/19 15:35 swelling ciprofloxacin AdvReac Unknown Tendon Verified 03/04/19 15:35 weakness simvastatin AdvReac Unknown Myalgias Verified 03/04/19 15:35 Home Medications Home Medications Medication Instructions Recorded Confirmed Type B-complex with vitamin C [Super B 1 tab PO QAM 02/25/19 02/25/19 History Complex-Vitamin C] ascorbic acid (vitamin C) [Vitamin 500 mg PO DAILY 02/25/19 02/25/19 History C] budesonide [Rhinocort Allergy] 2 spray INTRANASAL UD PRN 02/25/19 02/25/19 History docusate sodium [Colace] 100 mg PO BID 02/25/19 02/25/19 History gemfibrozil 600 mg PO DAILY 02/25/19 02/25/19 History losartan 50 mg PO QAM 02/25/19 02/25/19 History multivitamin 1 cap PO DAILY 02/25/19 02/25/19 History omeprazole 20 mg PO QAM 02/25/19 02/25/19 History psyllium husk [Metamucil] 1 tsp PO BID 02/25/19 02/25/19 History Past Med/Surg History Medical History Acid reflux controlled Fatty liver Hiatal hernia Hip problem s/p cortisone injection (10/2018) Hyperlipidemia Hypertension Snores Surgical History History of arthroscopy of left knee History of arthroscopy of right knee History of cardiac cath SEVERAL YEARS AGO= NO STENTS History of colonoscopy 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 History of hemorrhoidectomy History of prostate surgery LASER History of repair of left rotator cuff History of repair of right rotator cuff History of revision of total replacement of left knee joint History of thumb surgery LEFT History of toe surgery R History of total left knee replacement History of total right knee replacement Family History Grandmother Family history of diabetes mellitus (DM) Uncle Family history of diabetes mellitus (DM) Grandfather Family history of diabetes mellitus (DM) Other Family history of breast cancer in mother Patient's mother is Social History Preferred Language: [place] Communication Ability: Effective Supplier Diversity Director Required: No Beliefs That Will Affect Care: None Current Living Situation: Spouse Other Information That Helps Us Care for You: No Feels Safe at Home: Yes Smoking Status: Never smoker Do You Dip or Chew Tobacco: No (HX OF - QUIT 1984) ; Hx Alcohol Use: Yes Alcohol type: beer Hx Substance Use: No Review of Systems Review of Systems: All systems reviewed & are unremarkable except as noted in HPI & below Constitutional: as per Subjective / HPI Physical Exam Physical Exam: RLE NVSI +EHL/FHL/TA/GS SILT grossly, +2 DP pulse, compartments soft NT, limited painful ROM of the hip, antalgic gait. Constitutional: WD/WN, vitals as above Eyes: PERRL, conjunctivae normal, anicteric sclerae ENMT: external ear and nose normal, oropharynx normal Neck: trachea midline, no thyromegaly Respiratory: normal respiratory effort, lungs clear to auscultation Cardiovascular: RRR, no murmur, no edema Gastrointestinal (Abdomen): normal bowel sounds, soft, nontender, no hepatosplenomegaly Musculoskeletal: no cyanosis or clubbing, extremities motor strength 5/5 Skin: no rashes, warm and dry Neurologic: patellar DTR's 2+ bilat, sensation intact Psychiatric: A+Ox3, euthymic affect Lymphatic: no cervical or axillary lymphadenopathy Results & Data Diagnostic Findings Multiple views of the hip demonstrates severe DJD with complete loss of the joint space. +osteophytes, +sclerosis, +subchondral cysts.
[~2019-03-31 08:44] MED LIST changes: -ASCO10003 PO; -ATROPINE SULFATE 0.1 MG/ML 5ML SYR IV PRN; -B-CO-25 PO; -BUDE1SUS8 INTNAS; -BUPIVACAINE 0.25% 30 ML VIAL ONE; +CEFAZOLIN 2000MG 2,000 MG/15 ML SYR IV SCH; -DEXAMETHASONE 4 MG TAB PO SCH; -EpHEDrine SULFATE INJ 50 MG/ML AMP IV PRN; -IBUP-1050 PO; -KETO0.0216 OP; +LIDOCAINE HCL 2% 2 ML VIAL/AMP(20MG/ML) INFIL ONE; +LR 500ML BOLUS, THEN 15ML/HR IV SCH; -METOCLOPRAMIDE HCL 10 MG TAB PO SCH; +METOCLOPRAMIDE HCL 10 MG TABLET PO SCH; +MIDAZOLAM HCL 1 MG/ML 2ML VIAL ONE; -MISCTAB78 PO; -MULT-513 PO; -ONDANSETRON INJ 2 MG/ML 2 ML VIAL IV PRN; -POLYSOL4 OP; -PRLSR20 PO; +PROPOFOL IV EMULSION 10 MG/ML 20 ML VIAL IV ONE; -PSYL48.59 PO; +ROPIVACAINE 0.5% HCL/PF 150 MG, BUPIVACAINE 0.5% MPF 30 ML, EPINEPHrine 30MG/30ML (OR U... INFIL SCH; -SALI1SPR15 NAE; -SENNTAB23 PO; -SIMV40TA2 PO; +dexAMETHasone 4 MG TAB PO SCH
--- NOTE | 2019-03-31 09:14 | History & Physical Bridge Note ---
Date of Service March 31, 2019 History & Physical Bridge Note I have examined the patient, reviewed the History & Physical and in the interval since the performance of the History & Physical I have noted the following changes of clinical significance: no changes noted
[2019-03-31] MEDS ORDERED: ORTHO JOINT ANESTHETIC ONE (09:37)
[2019-03-31] MEDS ORDERED: BACITRACIN INJ 50,000 UNIT VIAL ONE (09:37)
[2019-03-31] MEDS ORDERED: TRANEXAMIC ACID 1,000 MG in 0.9 % SODIUM CHLORIDE 100 ML IV ONE ×2 (10:54→10:55)
[2019-03-31] MEDS ORDERED: TRANEXAMIC ACID 1,000 MG **IV Pre-op IV SCH (11:00)
[2019-03-31] MEDS ORDERED: TRANEXAMIC ACID 1,000 MG **IV Intra-op IV SCH (11:30)
[2019-03-31] MEDS ORDERED: KETAMINE HCL INJ 50 MG/ML 10 ML VIAL ONE (12:13)
[2019-03-31] MEDS ORDERED: PROPOFOL IV EMULSION 10 MG/ML 20 ML VIAL IV ONE (12:19)
[2019-03-31] MEDS ORDERED: GLYCOPYRROLATE 0.2 MG/ML VIAL ONE (12:21)
--- NOTE | 2019-03-31 12:55 | Post Operative Brief Note ---
Immediate Post Op Note v1 Date of Surgery March 31, 2019 Pre & Post Diagnosis Operation Date: 03/31/19 11:20 Pre-Op Diagnosis: Unilateral Primary Osteoarthritis, Right Hip Post-Op Diagnosis: Unilateral Primary Osteoarthritis, Right Hip I identified the patient and participated in the time-out.: Yes Procedure Operation Date: 03/31/19 11:20 Actual Procedures p Right Total Hip Arthroplasty Posterior(Right) - Chidi Foy DO Surgeon Chidi Foy DO Iron Caster Conner Yusuf Estimated Blood Loss 150 Findings Consistent with Post-Op Diagnosis Fluids 1400 cc LR Specimens femoral head Anesthesia Type Spinal MAC Complications none Disposition Disposition: Recovery Room Overlapping Procedure I was present for: the critical portions of procedure. I was immediately available: during the entire case. Back up surgeon: was not required during procedure.
--- NOTE | 2019-03-31 13:23 | Operative Report ---
Post Operative Report Pre & Post Diagnosis Operation Date: 03/31/19 11:20 Pre-Op Diagnosis: Unilateral Primary Osteoarthritis, Right Hip Post-Op Diagnosis: Unilateral Primary Osteoarthritis, Right Hip I identified the patient and participated in the time-out.: Yes Procedure Operation Date: 03/31/19 11:20 Actual Procedures p Right Total Hip Arthroplasty Posterior(Right) - Chidi Foy DO Surgeon Chidi Foy DO Negotiator Conner Yusuf Estimated Blood Loss 150 Findings Consistent with Post-Op Diagnosis Fluids 1400 cc LR Specimens Femoral head Anesthesia Type Spinal MAC Complications none Disposition Disposition: Recovery Room Indications The patient is a 68-year-old male who presents with severe progressive right hip DJD who has failed outpatient conservative treatments. I indicated the patient for a total hip replacement and the risks and benefits were explained in detail which included but not limited to infection, bleeding, blood clot, damage to surrounding bone, nerves, vessels, soft tissue, hip dislocation, failure of the prosthesis, leg length discrepancy, need for additional surgery and . The patient agreed to proceed with replacement of the hip and informed consent was obtained. Appropriate clearances were obtained. Description of Procedure COMPONENTS USED: [employer] hip system: Acetabulum size 56, femur size 12.5 extended offset, femoral head 36+3.5, liner 5636, acetabular screw 35 mm x 1. Following induction of adequate spinal anesthesia, the patient was transferred to the OR table and placed in lateral decubitus position with left hip down. The right hip was prepped and draped in the typical sterile fashion. A timeout was performed, patient identified and site bakari confirmed. Appropriate antibiotics were given. A standard posterolateral/Gissel-Langenbeck incision was made. Subcutaneous tissue was sharply dissected. Electrocautery was utilized for hemostasis. The fascia was incised throughout the length of the wound and retracted with the Charnley retractor. The bursa was taken down and the short external rotators were identified. The piriformis was tagged with #1 Vicryl. The short external rotators and capsule were divided from the posterior aspect of the femur using electrocautery. The posterior capsule was tagged with #1 Vicryl. Both external rotators and posterior capsule were swept posterior and protected, along with protecting the sciatic nerve. The hip was dislocated by flexion and internally rotation in a controlled manner and exposure of the femoral neck was gained with an old-style Hohmann and a blunt cobra retractor. A femoral cutting guide was utilized for making the appropriate level femoral neck cut with reciprocating saw. The femoral head was removed, measured and reserved on the back table. Next, attention was turned to the acetabulum. A posterior and anterior offset retractor was placed to gain adequate exposure. Acetabular labrum as well as posterior capsule elements were removed using electrocautery and forceps. Fovea centralis was cleared of all soft tissue. Sequential reaming was performed starting at 48 mm and carried up to a 55 mm and decision was made to proceed with impaction of a 56 mm trabecular metal cup. This was impacted and held using a single 35 mm bone screw. The trial acetabular liner was placed at this time. Next, attention was turned to the proximal femur where a Bovie and pickup was used to further clear short external rotators from their insertion on the femur. Box osteotome and canal finder was used to gain access to the femoral canal and the lateral reamer on power was used to further open the proximal lateral canal. Sequentially rasping was carried up to a 12.5 which gave good fit and fill of the proximal femur. A trial reduction was carried out with a extended offset femoral neck component a +3.5 mm femoral head. The trial reduction was stable in all degrees of rotation with no [id number] impingement. The hip was dislocated, trial components were removed and access to the acetabulum was re-established. The trial liner was removed and the cup was irrigated to ensure all debris was removed. The final acetabular liner was inserted and properly seated in the cup. Access to the femur was once more gained and the size 12.5 femoral stem with extended offset was impacted into position. The hip was once more assessed with the 36+3.5 mm femoral head. Stability was accessed and found to be excellent with equal leg lengths. The hip was dislocated for the last time and the final 36+3.5 ceramic femoral head was impacted in place and the hip was reduced. Range of motion was checked once again and found to be stable. A Betadine soak was performed. After 3 minutes, the hip was once more irrigated with copious sterile saline solution with bacitracin. The salvador-incisional soft tissue was injected utilizing [facility] ortho mix which includes a combination of Ropivicaine 0.5% 150mg, Bupivicaine 0.5%/Epinephrine 1:200,000 30ml, Toradol 30mg, Dexamethasone 4mg, Ketamine 10mg, Clonidine 100mcg and NSS 30ml Orthomix solution. The piriformis, external rotators and capsule were repaired to the greater trochanter through bone tunnels using #5 FiberWire. The fascia was closed using #1 Vicryl, subcutaneous tissue was closed using 2-0 Vicryl, and skin was closed with 3-0 V-lock suture and Dermabond Prineo. Sterile dressings were applied which included tefla, 4x4s and tegaderm adhesive dressing. The patient tolerated the procedure well and was transported to PACU in stable condition. Due to the complex nature of the procedure, the entire surgery was performed with the operational assistance of Conner Yusuf PA-C. The assistant football coach, under direct supervision, was involved in the actual performance of all aspects of the surgical procedure including patient positioning, hemostasis, tissue retraction, instrument management and wound closure. I attest to the content of the Intraoperative Record and any orders documented therein. Any exceptions are noted below.
--- NOTE | 2019-03-31 13:51 | XRay Report ---
XR hip 1V RT w pelvis CLINICAL HISTORY: Postoperative evaluation. COMPARISON: None FINDINGS: Alignment of the total right hip arthroplasty is anatomic. There is no fracture or unexpec nellie radiopaque foreign body. There is an acetabular screw. IMPRESSION: Expected findings following total right hip arthroplasty. Electronically signed by: Jeffrey Mcnulty M.D. 03/31/2019 1:50 PM
[2019-03-31] MEDS ORDERED: MAGNESIUM HYDROXIDE SUSP 30 ML UDC PO PRN (14:18)
[2019-03-31] MEDS ORDERED: ONDANSETRON INJ 2 MG/ML 2 ML VIAL IV PRN (14:18)
[2019-03-31] MEDS ORDERED: bisacodyL 10 MG SUPP PR PRN (14:18)
[2019-03-31] MEDS ORDERED: METOCLOPRAMIDE HCL INJ 5 MG/ML 2 ML VIAL IV PRN (14:18)
[2019-03-31] MEDS ORDERED: HYDROmorphone INJ 0.5 MG/0.5 ML SYR IV PRN (14:18)
[2019-03-31] MEDS ORDERED: NALOXONE HCL 0.4 MG/1 ML VIAL/CARP IV PRN (14:18)
--- NOTE | 2019-03-31 14:19 | Anesthesiology Progress Note ---
Date of Service March 31, 2019 Anesthesia Post Procedure Vital Signs Vital Signs: Temp Pulse Pulse Resp BP BP Pulse Ox 03/31/19 14:00 97.0 F L 62 15 111/66 97 03/31/19 13:50 60 14 102/86 95 03/31/19 13:40 62 22 106/70 97 03/31/19 13:30 69 13 110/67 89 L 03/31/19 13:22 96.8 F L 76 25 H 91/58 L 94 03/31/19 09:18 97.9 F 74 20 149/102 H 96 Pain Intensity Right Ankle: Pain Intensity: 8 Transfer of Care Handoff Completed per policy Notes Mental Status: alert / awake / arousable and participated in evaluation Patient Amnestic to Procedure: Yes Nausea / Vomiting: adequately controlled Pain: adequately controlled Airway Patency, RR, SpO2: stable & adequate BP & HR: stable & adequate Hydration State: stable & adequate Neuraxial Anesthesia: was administered and sensory block is resolving Anesthetic Complications: no major complications apparent and Pt Satisfied with anesthetic care
[2019-03-31] MEDS: SODIUM CHLORIDE 0.9% 1000ML 1,000 ML IV SCH (14:32)
--- NOTE | 2019-03-31 15:32 | Orthopedic Progress Note ---
Date of Service March 31, 2019 Assessment & Plan (1) Degenerative joint disease of right hip: Status post right total hip arthroplasty -Ancef x24 -DVT prophylaxis: SCDs, teds, ASA twice daily -Posterior hip precautions -PT/OT -Postoperative x-ray demonstrate a well aligned well fixed orthopedic prosthesis without evidence of fracture or dislocation. -A.m. lab -DC planning Subjective Post Operative Progress Note Patient seen sitting up in bed, comfortable, denies complaints, pain well controlled, no acute issues. Still feeling the effects of spinal anesthesia. Review of Systems Review of Systems: All systems reviewed & are unremarkable except as noted in HPI & below Constitutional: as per Subjective / HPI Physical Exam Physical Exam: Physical exam limited secondary to spinal anesthesia, +2 dorsalis pedis pulse, compartment soft nontender, dressing clean dry and intact. Abduction pillow in place. Constitutional: WD/WN, vitals as above Results & Data Vital Signs (Past 12 Hours) Vital Signs Temp Pulse Pulse Resp BP BP Pulse Ox 03/31/19 15:24 36.4 C L 76 16 129/85 98 03/31/19 14:50 36.4 C L 77 16 133/81 96 03/31/19 14:20 36.5 C 74 16 118/79 98 03/31/19 14:00 36.1 C L 62 15 111/66 97 03/31/19 13:50 60 14 102/86 95 03/31/19 13:40 62 22 106/70 97 03/31/19 13:30 69 13 110/67 89 L 03/31/19 13:22 36.0 C L 76 25 H 91/58 L 94 03/31/19 09:18 36.6 C 74 20 149/102 H 96
[2019-03-31] MEDS: ACETAMINOPHEN 500 MG TAB PO SCH ×2 (16:06→21:11)
[2019-03-31] MEDS: KETOROLAC TROMETHAMINE 15 MG/ML VIAL IV SCH ×2 (16:06→20:04)
[2019-03-31] MEDS: CEFAZOLIN 2000MG 2,000 MG/15 ML SYR IV SCH (20:00)
[2019-03-31] MEDS: DOCUSATE SODIUM 100 MG CAP PO SCH (20:04)
[2019-03-31] MEDS ORDERED: SENNA 8.6 MG TAB PO SCH (21:00)
[2019-03-31] MEDS: OXYCODONE HCL IR 5 MG TAB (IMMEDIATE RELEASE) PO PRN (23:02)
[2019-04-01] MEDS: SODIUM CHLORIDE 0.9% 1000ML 1,000 ML IV SCH (01:28)
[2019-04-01] MEDS: KETOROLAC TROMETHAMINE 15 MG/ML VIAL IV SCH ×2 (02:54→08:11)
[2019-04-01] MEDS: CEFAZOLIN 2000MG 2,000 MG/15 ML SYR IV SCH (02:55)
[2019-04-01] MEDS: ACETAMINOPHEN 500 MG TAB PO SCH (05:40)
[2019-04-01 05:57] LABS: Basophils # (auto) 0.01 K/uL (0-0.2); Basophils % (auto) 0.1 %; Eosinophils # (auto) 0.01 K/uL (0-0.5); Eosinophils % (auto) 0.1 %; Hemoglobin 13.4 g/dL (14.0-18.0); Immature Granulocytes # (auto) 0.03 K/uL (0.00-0.02); Immature Granulocytes % (auto) 0.2 %; Lymphocytes # (auto) 1.15 K/uL (1.2-3.4); Lymphocytes % (auto) 9.3 %; Mean Corpuscular Hemoglobin 30.1 pg (25-34); Mean Corpuscular Hgb Conc 34.4 g/dL (32-36); Mean Corpuscular Volume 87.6 fL (80-100); Mean Platelet Volume 11.2 fL (7.4-10.4); Monocytes # (auto) 0.97 K/uL (0.11-0.59); Monocytes % (auto) 7.9 %; Neutrophils # (auto) 10.15 K/uL (1.4-6.5); Neutrophils % (auto) 82.4 %; Platelet Count 182 K/uL (130-400); RDW Coefficient of Variation 13.3 % (11.5-14.5); RDW Standard Deviation 42.8 fL (36.4-46.3); Red Blood Count 4.45 M/uL (4.7-6.1); White Blood Count 12.32 K/uL (4.8-10.8)
[2019-04-01 06:30] LABS: BUN Creatinine Ratio 20.5 (10-20); Calcium 8.2 mg/dl (8.5-10.1); Creatinine Clr Calc Pharmacy 77.5 ml/min; Est GFR (African American) 85.9; Est GFR (Non-African American) 74.1; Potassium 3.8 mmol/L (3.5-5.1)
[2019-04-01 07:10] VITALS: BP 128/79; PULSE 77; TEMP 97.5; O2SAT 98
[2019-04-01] MEDS: DOCUSATE SODIUM 100 MG CAP PO SCH (08:13)
[2019-04-01] MEDS ORDERED: LOSARTAN POTASSIUM 50 MG TAB PO SCH (09:00)
[2019-04-01] MEDS ORDERED: CeleBREX 200 MG CAP PO SCH (09:00)
[2019-04-01] MEDS ORDERED: ASPIRIN 325 MG ECTAB PO SCH (09:00)
[2019-04-01] MEDS ORDERED: PANTOprazole 40 MG TAB PO SCH (09:00)
[2019-04-01] MEDS ORDERED: MULTIVITAMIN TAB PO SCH (09:00)
--- NOTE | 2019-04-01 10:52 | Orthopedic Progress Note ---
Date of Service April 01, 2019 Assessment & Plan (1) Degenerative joint disease of right hip: Status post right total hip arthroplasty POD#1 -Ancef x24 -DVT prophylaxis: SCDs, teds, ASA twice daily -Posterior hip precautions -PT/OT -Postoperative x-ray demonstrate a well aligned well fixed orthopedic prosthesis without evidence of fracture or dislocation. -A.m. lab - hgb 13.4 -DC planning - home with HH Subjective Post Operative Progress Note Patient seen sitting in chair at bedside, comfortable, denies complaints, pain well controlled, no acute issues. Denies F/C/N/V/SOP/CP. Review of Systems Review of Systems: All systems reviewed & are unremarkable except as noted in HPI & below Constitutional: as per Subjective / HPI Physical Exam Physical Exam: RLE NVSI +EHL/FHL/TA/GS SILT grossly, +2 DP pulse, compartments soft NT, dressing cdi. Constitutional: WD/WN, vitals as above Results & Data Vital Signs (Past 12 Hours) Vital Signs Temp Pulse Resp BP Pulse Ox 04/01/19 07:09 36.4 C L 77 16 128/79 98 04/01/19 03:00 36.5 C 83 16 148/77 H 95 03/31/19 23:24 36.5 C 79 16 143/75 H 96 Laboratory Results 04/01/19 04/01/19 Range/Units 05:41 05:41 WBC 12.32 H (4.8-10.8) K/uL RBC 4.45 L (4.7-6.1) M/uL Hgb 13.4 L (14.0-18.0) g/dL Hct 39.0 L (42-52) % MCV 87.6 (80-100) fL MCH 30.1 (25-34) pg MCHC 34.4 (32-36) g/dL RDW Std Deviation 42.8 (36.4-46.3) fL RDW Coeff of Amparo 13.3 (11.5-14.5) % Plt Count 182 (130-400) K/uL MPV 11.2 H (7.4-10.4) fL Immature Gran % (Auto) 0.2 % Neut % (Auto) 82.4 % Lymph % (Auto) 9.3 % [place] % (Auto) 7.9 % Eos % (Auto) 0.1 % Baso % (Auto) 0.1 % Immature Gran # (Auto) 0.03 H (0.00-0.02) K/uL Neut # (Auto) 10.15 H (1.4-6.5) K/uL Lymph # (Auto) 1.15 L (1.2-3.4) K/uL [place] # (Auto) 0.97 H (0.11-0.59) K/uL Eos # (Auto) 0.01 (0-0.5) K/uL Baso # (Auto) 0.01 (0-0.2) K/uL Sodium 138 (136-145) mmol/L Potassium 3.8 (3.5-5.1) mmol/L Chloride 106 (98-107) mmol/L Carbon Dioxide 28 (21-32) mmol/L Anion Gap 5.0 (3-11) BUN 21 H (7-18) mg/dl Creatinine 1.02 (0.6-1.4) mg/dl Est Cr Clr Drug Dosing 77.5 ml/min Est GFR ( Amer) 85.9 Est GFR (Non-Af Amer) 74.1 BUN/Creatinine Ratio 20.5 H (10-20) Glucose 98 (70-99) mg/dl Calcium 8.2 L (8.5-10.1) mg/dl
[2019-04-01] MEDS: OXYCODONE HCL IR 5 MG TAB (IMMEDIATE RELEASE) PO PRN (13:16)
--- NOTE | 2019-04-01 21:18 | Discharge Summary ---
Date of Service April 01, 2019 Admission HPI Per Admitting Provider The patient is a 68 year old male who presents with complaints of severe right hip pain and DJD. The patient has failed outpatient conservative treatments to this point which included NSAIDs, IA corticosteroid injection, home exercise/walking program. The patient's pain and limited function have progressed to the point where they severely hinder their activities of daily living and they no longer tolerate exercise programs. They are requesting to proceed with total hip replacement surgery. Principal Diagnosis Right total hip replacement Discharge Exam RLE NVSI +EHL/FHL/TA/GS SILT grossly, +2 DP pulse, compartments soft NT, dressing cdi. Constitutional WD/WN, vitals as above Discharge Data Allergies Allergy/AdvReac Type Severity Reaction Status Date / Time atorvastatin Allergy Unknown SOB, chest Verified 03/31/19 09:15 pain azithromycin Allergy Unknown Unknown Verified 03/31/19 09:15 reaction Cipro Allergy Unknown TENDONS Verified 08/15/17 09:43 HURT clindamycin Allergy Unknown Throat Verified 03/31/19 09:15 swelling, SOB lisinopril Allergy Unknown Facial Verified 03/31/19 09:15 swelling ciprofloxacin AdvReac Unknown Tendon Verified 03/31/19 09:15 weakness simvastatin AdvReac Unknown Myalgias Verified 03/31/19 09:15 Consultations 04/01/19 08:00 Consult Case Management - Discharge Planning Routine Procedures Performed Operation Date: 03/31/19 11:20 Actual Procedures p Right Total Hip Arthroplasty Posterior(Right) - Chidi Foy DO Hospital Course (1) Degenerative joint disease of right hip: The patient is a 68 -year-old male who presents with long standing history of severe right hip DJD and failed outpatient conservative treatments including NSAIDs, bracing, injections and home walking/exercise program. The patient's symptoms have progressed to the point where it has been difficult to perform even normal activities of daily living. I indicated the patient for a right total hip arthroplasty, the risks, benefits and complications of the procedure include but not limited to infection, bleeding, damage to bone, nerves, vessels, surrounding soft tissue, may develop blood clots, loss of function, leg length discrepancy, dislocation, failure of the components, loosening of the components, the need for additional surgery and . The patient wished to proceed with surgery at this time and informed consent was obtained. Hospital Course: On 03/31/19 the patient was taken to the operating room, adequate anesthesia administered and underwent a right total hip arthroplasty. The patient tolerated the procedure well and was taken to the PACU in stable condition. Post-operatively the patient was started on a DVT ppx medication and given appropriate IV antibiotics. Consults were placed to physical therapy, occupational therapy and case management. On POD#1, the patient did well overnight and their pain was well controlled. Labs were drawn and the Hgb was 13.4. The patient progressed well with PT. Dressings were changed at this time and the incision was clean, dry and intact. The patients hospital stay was relatively uneventful and they were deemed stable by the orthopedic team and consultants to be discharged home with HH on 04/01/19. Discharge Instructions: Upon discharge the patient may weight bear as tolerates through their operative extremity. They were instructed to keep the incision clean and dry at all times. The patient may shower but should not submerge the incision, avoid bathing, pools and hot tubes. The patient was given a script for pain medication and should take as instructed. The patient was given a script for DVT ppx ASA 325mg BID and should take as directed. The patient was instructed to not drive or travel for long distances until cleared to do so. If the patient develops any symptoms of fevers, chills, nausea, vomiting, increased redness, swelling, pain or drainage from the surgical site, they should notify the office and/or proceed to the nearest emergency room. The patient should follow up in 10-14 days after surgery for their routine post-operative follow-up appointment and should call the office to confirm the date and time. Status post right total hip arthroplasty POD#1 -Ancef x24 -DVT prophylaxis: SCDs, teds, ASA twice daily -Posterior hip precautions -PT/OT -Postoperative x-ray demonstrate a well aligned well fixed orthopedic prosthesis without evidence of fracture or dislocation. -A.m. lab - hgb 13.4 -DC planning - home with HH Total Time Total Time Spent Total Time Spent (In Minutes): 30 minutes Total Time Includes: Examination of the Patient, Discharge Planning, Medication Reconciliation and Communication With Other Providers Discharge Plan Discharge Items Patient Disposition: Home - Home Health Services Reason For Visit: Unilateral Primary Osteoarthritis, Right Hip Discharge Diagnosis: Right total hip replacement Condition on Discharge: Good Activity: Per Instructions section Lifting: Wait until after follow-up appointment Bathing: Keep incision dry Bathing Comment: No bathing, pools or hot tubs. Sexual Activity: Wait until after follow-up appointment Exercise/Sports: Wait until after follow-up appointment Driving/Machine Use: No driving Weightbearing: Full weightbearing Non-emergency contact: Primary Care Provider and Surgeon Call non-emergency contact if: you have any medication questions, your symptoms worsen, your pain is not controlled, your pain is worsening, your pain is unusual for you, your pain is concerning for you, you have a fever, your temperature is above 101, your wound has increased redness, your wound has increased drainage and your wound pain has increased Follow-up/Referrals: Jatin Mancera MD [Primary Care Provider] - Diet: Regular Addtl Attending Provider Instructions: ACTIVITY RECOMMENDATIONS: SELF CARE INSTRUCTIONS AFTER TOTAL HIP REPLACEMENT Until the incision and soft tissues around your hip have healed, there is a possibility that the hip prosthesis could dislocate. A. Observe the following precautions to prevent dislocation: 1. Don't bend your hip greater than 90 degrees. 2. Avoid crossing your legs or ankles while standing or lying. 3. Sit with your feet placed 6 inches apart. 4. When sitting, keep your knees below your hips. Sit on a firm surface, avoid deep, soft chairs and couches. Use an elevated toilet seat in the bathroom. 5. Don't bend over at the waist. Use a long handled shoehorn and a sock aid to help you put on your shoes and socks. A global regulatory affairs manager can help you corn picker objects that are too high or too low to reach. 6. Keep car riding to a minimum for at least one month after surgery. B. Your balance may be shaky for a while. Use crutches or a walker until directed by your doctor. C. Use hand rails when walking on stairs. D. Wear low heeled shoes with non-slip soles. E. Be sure that your floors are free of things that could trip you - throw rugs, electrical cords, small objects. Avoid wet and waxed floors, especially with crutches and canes. F. Try to walk several times a day with rest periods between. G. Continue with all the exercises taught to you in the hospital. Again, make walking a part of your daily routine. SPECIAL CARE INSTRUCTIONS: VERY IMPORTANT TO READ AND REVIEW A. You may still be at risk for phlebitis and blood clots. 1. Wear surgical stockings (BELA hose) for 2 weeks after surgery to improve circulation and reduce swelling. 2. Take Aspirin 325mg twice daily for 4 weeks or as directed by your doctor. This is your blood thinner. 3. High risk patients may be prescribed a stronger blood thinner if necessary. 4. If you are on Coumadin normally, your family doctor/supervisor photocomposition should monitor your blood work. Expect a phone call the day of or the day after bloodwork is drawn to adjust your dosage. B. You must take antibiotics before having dental work, bladder, bowel and other surgery. Your doctor will provide you with a permanent card to carry describing precautions. C. Call [facility] if you have a fever, redness or swelling around the incision, cloudy drainage from incision, or sudden increase in pain in your hip, not relieved by your regular pain medication. D. Please call the office at if you have any concerns or questions about your operation or recovery. * YOU MAY SHOWER, NO TUB BATHS UNTIL CLEARED BY YOUR DOCTOR. * WEAR BELA HOSE 20 HOURS PER DAY FOR 2 WEEKS. * YOU SHOULD USE A WALKER OR CRUTCHES FOR 2-4 WEEKS. THIS WILL HELP PREVENT STRAIN ON YOUR HIP MUSCLE AND ALLOW IT TO HEAL PROPERLY. YOU MAY WEAN TO A CANE TOLERATED. * MOST PATIENTS WILL HAVE HOME NURSING FOR THERAPY. IF YOU DECIDE TO DO OUTPATIENT PHYSICAL THERAPY, PLEASE SCHEDULE THIS 3 TIMES PER WEEK. *DERMABOND Prineo- This is a mesh tape dressing that is covered with glue. It should remain in place until the incision is properly healed, usually 10-14 days. This dressing is designed to naturally slough off. You may trim the excess mesh tape as it peels off. Incision may be briefly wet in a shower. Dry immediately by blotting with a clean, dry towel. Do not bath or swim until instructed by your doctor. Do not scratch, rub, or pick at the dressing. Do not apply any topical ointments or lotions until dressing is completely removed and/or instructed by your doctor. There may be a small piece of suture material at one end of your incision. Do not pull or trim this. If it is bothersome or catching on clothing, you may cover it with a band-aid. FOLLOW UP VISIT: If appointment is not already scheduled: Please call [facility] to make a follow-up appointment for 2 weeks after your surgery at . Pending Studies at Discharge: No Stand-Alone Forms: My Bradley [facility], Opioid Pain Management, Smoking Cessation Medications and DC Order Prescriptions: New acetaminophen [Tylenol Extra Strength] 500 mg Tablet 1,000 mg PO Q8 PRN (Reason: pain and/or fever) Qty: 90 RF: 0 celecoxib [Celebrex] 200 mg Capsule 200 mg PO BID PRN (Reason: pain and inflammation) Qty: 28 RF: 0 aspirin 325 mg Tablet,Delayed Release (Dr/Ec) 325 mg PO BID 28 Days Qty: 56 RF: 0 oxycodone 5 mg Tablet 5 mg PO Q6H MDD 6 tabs PRN (Reason: pain) Qty: 30 RF: 0 Continued losartan 50 mg Tablet 50 mg PO QAM RF: 0 budesonide [Rhinocort Allergy] 32 mcg/actuation [place],Non-Aerosol 2 spray INTRANASAL UD PRN (Reason: SEASONAL ALLERGIES) RF: 0 ascorbic acid (vitamin C) [Vitamin C] 500 mg Tablet 500 mg PO DAILY RF: 0 docusate sodium [Colace] 100 mg Capsule 100 mg PO BID RF: 0 omeprazole 20 mg Capsule,Delayed Release(Dr/Ec) 20 mg PO QAM RF: 0 multivitamin Capsule 1 cap PO DAILY RF: 0 B-complex with vitamin C [Super B Complex-Vitamin C] Tablet 1 tab PO QAM RF: 0 Metamucil 3.4 gram/5.4 gram Powder 1 tsp PO BID RF: 0 Discharge Orders: Discharge Order (Routine); Ordered 04/01/19 Ordered By: Chidi Foy Admission Data Admit Date/Time: 03/31/19 13:28 Attending Provider: Chidi Foy Admit Provider: Chidi Foy Primary Care Provider: Jatin Mancera V. Other Interventions: Discharge Summary Assessment (RN) Last Done: 04/01/19 12:48 DC Date/Time DO NOT enter until pt leaves facility: 04/01/19 14:19
== END 2019-04-01 14:19 | disposition home health service (06) | DRG 470 ==
LOC: ASU 08:44 → 3E 13:28